=== PATIENT | female | born 1965 | race Caucasian/White ===

== ENCOUNTER → 2017-03-01 | Outpatient (CLI) | payer BC ==
--- NOTE | ~2017-03-01 | PFT ---
[id number] [facility] [address] [place], [place] [address] [id number] O MR#: [id number] NAME: MICHAEL BERRY ROOM: SEX: F STUDY DATE/TIME: 03/08/2017 : 1965 AGE: 51 STUDY DESCRIPTION: Attending Physician: Candace Cortez Aprn Referring Physician: Candace Cortez Aprn Primary Care Physician: Selene Rodriguez M.D. PULMONARY DIAGNOSTIC REPORT EXAM Pulmonary function test. FINDINGS Spirometry consistent with a mild obstructive defect. There is a significant response to bronchodilators of 14% yielding a FEV1 of 2.02 L, 82% of predicted. Lung volumes are fairly unremarkable. Diffusion capacity is normal. Changes would be consistent with asthma in the correct clinical setting. Dictated by... Salinas Friedman M.D. KISHORE/carlos TD: 03/08/2017 09:29 JOB #: [id number] PULMONARY DIAGNOSTIC REPORT Page 1 of 1
== END | disposition home or self-care (01) ==
LOC: CRC 10:17
DX: R06.02 Shortness of breath (principal)
CPT/HCPCS: 94060; 94726; 94729